=== PATIENT | male | born 1935 | race African-American/Black ===

== ENCOUNTER 2020-01-11 01:55 | Emergency (ER) | payer OTHER ==
[~2020-01-11] VITALS: Ht 182.9 cm; Wt 95.0 kg
[~2020-01-11 01:55] MED LIST: FURO-152 PO; TAMS-11 PO
[2020-01-11] MEDS ORDERED: ONDANSETRON HCL 4MG/2ML INJ IV STA (02:20)
[2020-01-11 02:37] LABS: BASOPHILS % 0.6 % (0.0-2.0); EOSINOPHILS % 2.9 % (0.0-5.0); HEMATOCRIT. 39.4 % (42.0-52.0); HEMOGLOBIN. 12.8 g/dL (14.0-18.0); MEAN CORPUSCULAR HEMOGLOBIN 24.3 pg (28.0-32.0); MEAN CORPUSCULAR VOLUME 74.5 fL (80.0-94.0); MEAN PLATELET VOLUME 7.2 fl (7.4-10.4); MONOCYTES % 6.7 % (2.0-8.0); NEUTROPHILS % 53.8 % (40.0-76.0); PLATELET 166 x1000/uL (130-400); RED BLOOD CELL COUNT 5.28 mill/uL (4.7-6.1); RED CELL DISTRIBUTION WIDTH 18.2 % (11.6-14.6)
[2020-01-11 02:44] LABS: CHLORIDE 106 mEq/L (98-107)
[2020-01-11 02:45] LABS: INR 1.1; PROTHROMBIN TIME 11.6 sec (9.6-11.0)
[2020-01-11] MEDS ORDERED: ONDANSETRON HCL 4MG/2ML INJ IV NR (03:45)
[2020-01-11] MEDS ORDERED: MECLIZINE 25MG TABLET PO NR (03:45)
[2020-01-11 07:32] VITALS: BP 144/67
== END 2020-01-11 07:34 | disposition home or self-care (01) ==
LOC: ER 02:17
DX: R42 Dizziness and giddiness (principal); J45.909 Unspecified asthma, uncomplicated; I10 Essential (primary) hypertension
CPT/HCPCS: 36415; 71045; 80053; 83880; 84484; 85025; 85610; 93005; 96374; 96376; 99285; J2405; J8597